=== PATIENT | female | born 1985 | race African-American/Black ===

== ENCOUNTER 2019-05-15 19:42 | Emergency (ER) | payer OTHER ==
[~2019-05-15] VITALS: Ht 177.8 cm; Wt 63.5 kg
[2019-05-15] MEDS ORDERED: MOBIC7.5 MG PO (20:45)
[2019-05-15 21:39] VITALS: BP 134/78
== END 2019-05-15 21:40 | disposition home or self-care (01) ==
LOC: ER 19:42
DX: S83.92XA Sprain of unspecified site of left knee, initial encounter (principal); F17.210 Nicotine dependence, cigarettes, uncomplicated; Z88.8 Allergy status to other drugs, medicaments and biological substances; Y93.41 Activity, dancing; Y93.89 Activity, other specified; Y92.89 Other specified places as the place of occurrence of the external cause; Y99.8 Other external cause status